=== PATIENT | male | born 1970 | race Caucasian/White ===

== ENCOUNTER 2023-11-12 09:57 | Day surgery (SDC) | payer BC ==
[2023-11-12] MEDS: Lactated Ringers 1,000 ML IV SCH (10:10)
[2023-11-12] MEDS ORDERED: Propofol 200 MG/20 ML SDV ONE ×2 (10:22→11:36)
[2023-11-12] MEDS ORDERED: fentaNYL 100 MCG/2 ML SDV ONE (10:22)
== END 2023-11-12 11:45 | disposition home or self-care (01) ==
LOC: VM.SDS 09:57
PROVIDERS: ATTEND Surgery
DX: Z12.11 Encounter for screening for malignant neoplasm of colon (principal); K57.30 Diverticulosis of large intestine without perforation or abscess without bleeding; H65.191 Other acute nonsuppurative otitis media, right ear; E66.9 Obesity, unspecified; Z68.30 Body mass index [BMI] 30.0-30.9, adult
CPT/HCPCS: 00812; J2704; J3010; J7120